=== PATIENT | female | born 1935 | race Caucasian/White ===

== ENCOUNTER 2016-11-23 13:43 | Emergency (ER) | payer MEDICARE ==
[~2016-11-23] VITALS: Ht 162.6 cm; Wt 44.0 kg
[~2016-11-23 13:43] MED LIST: APIX2.5T PO; ASPI-496 PO; CHOL200012 PO; ESTR1TAB17 PO; FLEC50TA25 PO; HYDR10TA4 PO; IPRA0.2S35 INH; LEVO50TA5 PO; LUTE20CA PO; METO25TA35 PO; METO25TA91 PO; TRAM50TA2 PO; VITA400C40 PO
[2016-11-23] MEDS ORDERED: SODIUM CHLORIDE 0.9% 1,000 ML IV ONE (14:15)
[2016-11-23 14:46] LABS: ASPARTATE AMINO TRANSFERASE 20 U/L (15-37); BLOOD UREA NITROGEN 11 mg/dL (7-18)
[2016-11-23] MEDS ORDERED: CETI10CA PO (15:40)
[2016-11-23 16:02] VITALS: BP 158/84
== END 2016-11-23 16:04 | disposition home or self-care (01) ==
LOC: ED 15:30
DX: T82.837A Hemorrhage due to cardiac prosthetic devices, implants and grafts, initial encounter (principal); I10 Essential (primary) hypertension; I48.91 Unspecified atrial fibrillation; Z85.9 Personal history of malignant neoplasm, unspecified
CPT/HCPCS: 36415; 71010; 76604; 80053; 85025; 85610; 93005; 99285

== ENCOUNTER 2017-04-01 10:25 | Emergency (ER) | payer MEDICARE ==
[~2017-04-01] VITALS: Ht 160 cm; Wt 42.0 kg
[~2017-04-01 10:25] MED LIST changes: +CETI10CA PO; -CHOL200012 PO; +CHOL200074 PO; -LUTE20CA PO; +LUTE20CA2 PO; -VITA400C40 PO; +VITA400C43 PO
[2017-04-01] MEDS ORDERED: SODIUM CHLORIDE 0.9% 1,000 ML IV ONE (11:18)
[2017-04-01] MEDS ORDERED: ONDANSETRON 2MG/ML, 2ML IVPush ONE (11:30)
[2017-04-01] MEDS ORDERED: MORPHINE SULFATE 4 MG/ML, 1ML IVPush PRN (11:30)
[2017-04-01] MEDS ORDERED: MAALOX/HYOSCYAMINE/LIDOCAINE 45 ML BTL PO ONE (11:30)
[2017-04-01] MEDS ORDERED: FAMOTIDINE 20 MG/2 ML IVP ONE (11:30)
[2017-04-01] MEDS ORDERED: morphine SULFATE 10 MG/ML, 1ML ONE (11:32)
[2017-04-01] MEDS ORDERED: FAMOTIDINE 20 MG/2 ML ONE (11:33)
[2017-04-01] MEDS ORDERED: ONDANSETRON 2MG/ML, 2ML ONE (11:33)
[2017-04-01] MEDS ORDERED: MAALOX/HYOSCYAMINE/LIDOCAINE 45 ML BTL ONE (11:33)
[2017-04-01 11:47] LABS: HEMATOCRIT 46.2 % (34.6-47.8); HEMOGLOBIN 15.2 g/dL (11.7-16.4)
[2017-04-01] MEDS ORDERED: LACT1CAP40 PO (11:51)
[2017-04-01 11:59] LABS: BLOOD UREA NITROGEN 10 mg/dL (7-18)
[2017-04-01 12:04] LABS: ASPARTATE AMINO TRANSFERASE 22 U/L (15-37)
[2017-04-01 14:30] VITALS: BP 151/86
== END 2017-04-01 14:32 | disposition home or self-care (01) ==
LOC: ED 14:22
DX: R07.9 Chest pain, unspecified (principal); R10.11 Right upper quadrant pain; R10.12 Left upper quadrant pain; R10.13 Epigastric pain; I10 Essential (primary) hypertension; J44.9 Chronic obstructive pulmonary disease, unspecified; Z85.3 Personal history of malignant neoplasm of breast; Z90.710 Acquired absence of both cervix and uterus
CPT/HCPCS: 36415; 74022; 76700; 80053; 81001; 83690; 85025; 85610; 87086; 93005; 96374; 96375; 99285; J2405; S0028

== ENCOUNTER 2017-04-13 11:33 | Inpatient (IN) | payer MEDICARE ==
[~2017-04-13] VITALS: Ht 160 cm; Wt 43.3 kg
[~2017-04-13 11:33] MED LIST changes: +LACT1CAP40 PO
[2017-04-13] MEDS ORDERED: SODIUM CHLORIDE 0.9% 1,000 ML IV ONE (12:42)
[2017-04-13] MEDS ORDERED: ONDANSETRON 2MG/ML, 2ML IVPush ONE (13:00)
[2017-04-13] MEDS ORDERED: MORPHINE SULFATE 4 MG/ML, 1ML IVPush PRN (13:00)
[2017-04-13] MEDS ORDERED: SODIUM CHLORIDE FLUSH 10ML SYR IVF ONE (13:00)
[2017-04-13 13:01] LABS: HEMATOCRIT 40.8 % (34.6-47.8); HEMOGLOBIN 13.6 g/dL (11.7-16.4); WHITE BLOOD COUNT 5.9 x10^3/uL (3.4-10)
[2017-04-13] MEDS ORDERED: morphine SULFATE 10 MG/ML, 1ML ONE (13:10)
[2017-04-13] MEDS ORDERED: ONDANSETRON 2MG/ML, 2ML ONE (13:11)
[2017-04-13 13:12] LABS: ASPARTATE AMINO TRANSFERASE 25 U/L (15-37); BLOOD UREA NITROGEN 10 mg/dL (7-18)
[2017-04-13] MEDS ORDERED: OMNIPAQUE 350 MG/ML, 100ML BOTTLE ONE (15:31)
[2017-04-13] MEDS ORDERED: DEXTROSE 50%, 50ML SYRINGE ONE (15:50)
[2017-04-13] MEDS ORDERED: ACETAMINOPHEN 325 MG TABLET PO PRN (17:30)
[2017-04-13] MEDS ORDERED: ONDANSETRON 2MG/ML, 2ML IVPush PRN (17:30)
[2017-04-13] MEDS ORDERED: HYDROcodone/APAP 5/325 TABLET PO PRN (17:30)
[2017-04-13 17:57] LABS: IS PT STATUS REG ER OR PRE ER? YES
[2017-04-13 18:00] VITALS: BP 223/91
[2017-04-13] MEDS: hydrALAzine 20 MG/ML, 1ML IVPush PRN (18:25)
[2017-04-13] MEDS: morphine SULFATE 10 MG/ML, 1ML IVPush PRN (18:34)
[2017-04-13 19:51] VITALS: BP 115/52
[2017-04-13] MEDS: PANTOPROZOLE 40MG TABLET PO SCH (21:00)
[2017-04-13] MEDS: APIXABAN 2.5 MG TABLET PO SCH (21:42)
[2017-04-13] MEDS: SODIUM CHLORIDE 0.9% 1,000 ML IV SCH (21:43)
[2017-04-14] MEDS: METOPROLOL SUCCINATE 25 MG TAB.ER.24H PO SCH ×3 (00:22→20:17)
[2017-04-14 01:49] VITALS: BP 121/82
[2017-04-14] MEDS: morphine SULFATE 10 MG/ML, 1ML IVPush PRN ×3 (01:55→21:25)
[2017-04-14] MEDS ORDERED: METOPROLOL SUCCINATE 25 MG TAB.ER.24H PO SCH (06:00)
[2017-04-14 06:28] LABS: ASPARTATE AMINO TRANSFERASE 23 U/L (15-37); BLOOD UREA NITROGEN 11 mg/dL (7-18)
[2017-04-14 07:35] VITALS: BP 130/65
[2017-04-14] MEDS: CHOLECALCIFEROL 1,000 UNIT TABLET PO SCH (09:00)
[2017-04-14] MEDS ORDERED: TEMPLATE NON-FORMULARY MED. (Lutein** 20 MG) PO SCH (09:00)
[2017-04-14] MEDS: LACTOBACILLUS CHEW TABLET PO SCH (09:00)
[2017-04-14] MEDS: CETIRIZINE 10 MG TABLET PO SCH (09:00)
[2017-04-14] MEDS: PANTOPROZOLE 40MG TABLET PO SCH ×2 (09:00→20:10)
[2017-04-14] MEDS: VITAMIN E 400 UNITS CAPSULE PO SCH (09:00)
[2017-04-14] MEDS: APIXABAN 2.5 MG TABLET PO SCH ×2 (09:00→20:17)
[2017-04-14] MEDS: LEVOTHYROXINE 50 MCG TABLET PO SCH (09:00)
[2017-04-14] MEDS: SODIUM CHLORIDE 0.9% 1,000 ML IV SCH (09:34)
[2017-04-14 13:35] VITALS: BP 160/74
[2017-04-14 14:11] VITALS: BP 144/76
[2017-04-14] MEDS: POTASSIUM CHLORIDE 40 MEQ in SODIUM CHLORIDE 0.9% 500 ML IV SCH ×2 (17:07→21:18)
[2017-04-14 19:47] VITALS: BP 179/77
[2017-04-15 00:29] VITALS: BP 183/71
[2017-04-15 00:44] VITALS: BP 176/72
[2017-04-15] MEDS: hydrALAzine 20 MG/ML, 1ML IVPush PRN (00:45)
[2017-04-15] MEDS: morphine SULFATE 10 MG/ML, 1ML IVPush PRN (05:16)
[2017-04-15 05:29] LABS: BLOOD UREA NITROGEN 11 mg/dL (7-18)
[2017-04-15 08:10] VITALS: BP 165/86
[2017-04-15] MEDS: LEVOTHYROXINE 50 MCG TABLET PO SCH (09:26)
[2017-04-15] MEDS: CETIRIZINE 10 MG TABLET PO SCH (09:26)
[2017-04-15] MEDS: SODIUM CHLORIDE 0.9% 1,000 ML IV SCH (09:26)
[2017-04-15] MEDS: PANTOPROZOLE 40MG TABLET PO SCH (09:26)
[2017-04-15] MEDS: METOPROLOL SUCCINATE 25 MG TAB.ER.24H PO SCH (09:26)
[2017-04-15] MEDS: LACTOBACILLUS CHEW TABLET PO SCH (09:27)
[2017-04-15] MEDS: CHOLECALCIFEROL 1,000 UNIT TABLET PO SCH (09:27)
[2017-04-15] MEDS: APIXABAN 2.5 MG TABLET PO SCH (09:27)
[2017-04-15] MEDS: VITAMIN E 400 UNITS CAPSULE PO SCH (10:48)
[2017-04-15] MEDS ORDERED: PANT40TA5 PO (11:18)
[2017-04-15] MEDS ORDERED: HYDR-3240 PO (11:18)
[2017-04-15] MEDS ORDERED: ONDA4TAB13 SL (11:18)
[2017-04-15] MEDS ORDERED: LIPA1CAP45 PO (11:18)
[2017-04-15 13:35] VITALS: BP 169/66
[2017-04-15] MEDS ORDERED: LISI-170 PO (14:30)
[2017-04-15] MEDS ORDERED: LISINOPRIL 20 MG TABLET PO SCH (21:00)
[2017-05-16] MEDS ORDERED: BENZ-17 PO (07:44)
== END 2017-04-15 17:30 | disposition home or self-care (01) | DRG 444 ==
LOC: ED 13:43 → INTOOBSV 16:12 → EDIP 16:12 → SUATTDRO 16:26 → 3NE 17:57 → OBSVTOIN 04-14 15:21
PROVIDERS: ADMIT Hospitalist; ATTEND Internal Medicine
DX: K81.9 Cholecystitis, unspecified (principal); E43 Unspecified severe protein-calorie malnutrition; D68.69 Other thrombophilia; I48.91 Unspecified atrial fibrillation; Z99.81 Dependence on supplemental oxygen; J44.9 Chronic obstructive pulmonary disease, unspecified; Z68.1 Body mass index [BMI] 19.9 or less, adult; R10.11 Right upper quadrant pain; K82.8 Other specified diseases of gallbladder; K59.00 Constipation, unspecified; I10 Essential (primary) hypertension; G89.29 Other chronic pain; E03.9 Hypothyroidism, unspecified; E87.6 Hypokalemia; M47.816 Spondylosis without myelopathy or radiculopathy, lumbar region; Z91.018 Allergy to other foods; Z88.8 Allergy status to other drugs, medicaments and biological substances; Z90.710 Acquired absence of both cervix and uterus; Z90.12 Acquired absence of left breast and nipple; Z85.828 Personal history of other malignant neoplasm of skin; Z85.3 Personal history of malignant neoplasm of breast; Z90.49 Acquired absence of other specified parts of digestive tract; Z79.01 Long term (current) use of anticoagulants
CPT/HCPCS: 36415; 71010; 74177; 76700; 78227; 80048; 80053; 83690; 83735; 84100; 84439; 84443; 84484; 85025; 85610; 85730; 87324; 93005; 96361; 96374; 96375; G0378; J2405; J3480; Q9967; A9537; C9898; J0360; J2270; J7030; J7040